=== PATIENT | female | born 1975 | race Caucasian/White ===

== ENCOUNTER 2017-02-07 13:29 | Emergency (ER) | payer SELFPAY ==
[2017-02-07 13:52] VITALS: RESP 18; TEMP 98.4
[2017-02-07 14:08] VITALS: BP 121/80; PULSE 63; O2SAT 99
--- NOTE | 2017-02-07 14:35 | C.PDOC ---
History Of Present Illness Patient is a 41 year old female who presents to the ER with a complaint of pain from her mid to upper back for the past 4 days. This is similar to pain that patient has had many times in the past with no new injury or heavy lifting. or exacerbating factor. Patient states she saw her PMD recently who prescribed her medication for the pain, but states that the medication no longer helps. Patient has a history of herniated disc. Patient was recommended by PMD to see automobile painter but did not go due to lack of insurance. Patient also reports having painful urination for one day. Currently denies nausea, vomiting, or any other injury at this moment. no addle anesthesia, no bladder or bowel incontinence. Time Seen by Provider: 02/07/17 14:00 Chief Complaint (Nursing): Back Pain History Per: Patient History/Exam Limitations: no limitations Onset/Duration Of Symptoms: Days (4) Current Symptoms Are (Timing): Still Present Past Medical History Reviewed: Historical Data, Nursing Documentation, Vital Signs Vital Signs: Last Vital Signs Temp 98.4 F 02/07/17 14:07 Pulse 63 02/07/17 14:07 Resp 18 02/07/17 14:07 BP 121/80 02/07/17 14:07 Pulse Ox 99 02/07/17 15:28 - Medical History PMH: Back Problems, HTN Surgical History: Appendectomy (2000) - [facility] Procedures INJECT/INFUSE NEC (05/08/15) Family History: States: Unknown Family Hx - Social History Hx Tobacco Use: No Hx Alcohol Use: No Hx Substance Use: No - Immunization History Hx Tetanus Toxoid Vaccination: Yes Hx Influenza Vaccination: Yes Hx Pneumococcal Vaccination: Yes Review Of Systems Respiratory: Negative for: Cough, Shortness of Breath Gastrointestinal: Negative for: Nausea, Vomiting Genitourinary: Positive for: Dysuria Musculoskeletal: Positive for: Back Pain (Mid to lower) Physical Exam - Physical Exam Appears: Well, Non-toxic Skin: Normal Color, Warm, Dry Head: Atraumatic, Normacephalic Oral Mucosa: Moist Neck: Normal ROM, No Decreased ROM, No Midline Cervical Tenderness, Paracervical Tenderness Cardiovascular: Rhythm Regular, No Murmur Respiratory: Normal Breath Sounds, No Rales, No Rhonchi, No Wheezing Gastrointestinal/Abdominal: Bowel Sounds, Soft, No Tenderness Back: No CVA Tenderness, No Vertebral Tenderness, Paraspinal Tenderness (left and right sides lumbar area, less tenderness with distraction. ) Extremity: No Pedal Edema, No Calf Tenderness Neurological/Psych: Oriented x3, Normal Speech, Normal Cognition, Normal Motor, Normal Sensation ED Course And Treatment O2 Sat by Pulse Oximetry: 99 (Room air) Pulse Ox Interpretation: Normal Progress Note: Urinalysis and POC urine test ordered. Medical Decision Making Medical Decision Making: [place] aware reviewed; pt received an RX for 10 tablets of tramadol on 01/19/17. 324 pm pt given one tablet of tramadol in ED; advised to continue her usual medication and follow up with her PMD. Disposition Counseled Patient/Family Regarding: Diagnosis, Need For Followup - Disposition Referrals: [facility] [Outside] [facility] [Outside] Disposition: HOME/ ROUTINE Disposition Time: 15:26 Condition: IMPROVED Additional Instructions: [place] narinder medicamentos usuales segn lo prescrito. Siga con pimentel mdico o en la cl thelma mdica el lunes si el dolor persiste. Instructions: Chronic Back Pain (ED) Forms: Gen Discharge Inst Sinhala Print Language: MALAGASY - Clinical Impression Clinical Impression: Back pain, chronic
[2017-02-07 14:48] LABS: RBC URINE 12 /hpf (0-3); URINE BILIRUBIN NEGATIVE (NEGATIVE); URINE BLOOD 1+ (NEGATIVE); URINE COLOR Yellow (YELLOW); URINE GLUCOSE (UA) NORMAL (Normal); URINE KETONE NEGATIVE (NEGATIVE); URINE LEUKOCYTE ESTERASE NEG Leu/uL (Negative); URINE PROTEIN NEGATIVE (NEGATIVE); URINE UROBILINOGEN NORMAL mg/dL (0.2-1.0); WBC URINE < 1 /hpf (0-5)
== END 2017-02-07 15:41 | disposition home or self-care (01) ==
LOC: C.ER 13:29
DX: G89.29 Other chronic pain (principal); M54.89 Other dorsalgia

== ENCOUNTER 2018-01-02 12:04 | Emergency (ER) | payer SELFPAY ==
[2018-01-02 12:10] VITALS: BMI 20.7
[2018-01-02 12:13] VITALS: O2SAT 100
[2018-01-02 12:41] LABS: BASO % 0.3 % (0.0-2.0); HEMOGLOBIN 12.9 g/dL (11.0-16.0); LYMPH # 1.6 K/uL (1.0-4.3); MEAN CELL VOLUME 77.7 fL (81.0-99.0); MEAN CORPUSCULAR HEMOGLOBIN 25.2 pg (27.0-31.0); MEAN CORPUSCULAR HGB CONC 32.5 g/dL (33.0-37.0); MEAN PLATELET VOLUME 8.7 fL (7.2-11.7); MONO # 0.7 K/uL (0.0-0.8); MONO % 7.6 % (0.0-10.0); NEUT # 7.4 K/uL (1.8-7.0); NEUT % 76.1 % (50.0-75.0); RBC 5.1 Mil/uL (3.80-5.20); RED CELL DISTRIBUTION WIDTH 16.4 % (11.5-14.5); WHITE BLOOD COUNT 9.7 K/uL (4.8-10.8)
[2018-01-02 13:06] LABS: ALB/GLOB RATIO 1.2 (1.0-2.1); ALT/SGPT 17 U/L (9-52); AST/SGOT 29 U/L (14-36); BLOOD UREA NITROGEN 16 mg/dL (7-17); CALCIUM 9.7 mg/dl (8.6-10.4); GFR AFRICAN-AMERICAN > 60; GFR NON-AFRICAN AMERICAN > 60
[2018-01-02] MEDS ORDERED: Sodium Chloride 0.9% 1,000 ML IV STA (13:52)
[2018-01-02] MEDS ORDERED: Sodium Chloride 0.9% 1,000 ML ONE (14:19)
[2018-01-02 14:20] LABS: HCG,QUALITATIVE URINE NEGATIVE (NEGATIVE)
[2018-01-02 14:28] LABS: SQUAMOUS EPITHIAL 6 /hpf (0-5); URINE BACTERIA RARE (<OCC); URINE BILIRUBIN NEGATIVE (NEGATIVE); URINE BLOOD NEGATIVE (NEGATIVE); URINE CLARITY Hazy (Clear); URINE COLOR Amber (YELLOW); URINE GLUCOSE (UA) NORMAL (Normal); URINE LEUKOCYTE ESTERASE NEG Leu/uL (Negative); URINE NITRATE NEGATIVE (NEGATIVE); URINE PROTEIN 2+ mg/dL (NEGATIVE)
[2018-01-02 14:30] LABS: LIPASE 267 U/L (23-300)
--- NOTE | 2018-01-02 15:43 | C.PDOC ---
History Of Present Illness 42-year-old female, presents to the emergency department with complaints of three-day history of generalized abdominal pain, non-bloody/non-bilious vomiting and diarrhea . Patient notes a fever on day one which has now resolved. Denies rash, recent travel symptoms, back pain. Time Seen by Provider: 01/02/18 12:48 Chief Complaint (Nursing): GI Problem History Per: Patient History/Exam Limitations: no limitations Onset/Duration Of Symptoms: Days Current Symptoms Are (Timing): Still Present Severity: Moderate Past Medical History Reviewed: Historical Data, Nursing Documentation, Vital Signs Vital Signs: Last Vital Signs Temp 99.3 F 01/02/18 12:11 Pulse 106 H 01/02/18 12:11 Resp 18 01/02/18 12:11 BP 108/78 01/02/18 12:11 Pulse Ox 100 01/02/18 17:02 - Medical History PMH: Back Problems Denies: HTN (PT DENIES) Surgical History: Appendectomy (2000) - [facility] Procedures INJECT/INFUSE NEC (05/08/15) Family History: States: No Known Family Hx - Social History Hx Tobacco Use: No Hx Alcohol Use: No Hx Substance Use: No - Immunization History Hx Tetanus Toxoid Vaccination: Yes Hx Influenza Vaccination: Yes Hx Pneumococcal Vaccination: Yes Review Of Systems Except As Marked, All Systems Reviewed And Found Negative. Constitutional: Negative for: Fever, Chills Cardiovascular: Negative for: Chest Pain Respiratory: Negative for: Cough, Shortness of Breath Gastrointestinal: Positive for: Nausea, Vomiting, Abdominal Pain Genitourinary: Negative for: Dysuria, Hematuria Musculoskeletal: Negative for: Back Pain Skin: Negative for: Rash Neurological: Negative for: Weakness Physical Exam - Physical Exam Appears: Non-toxic, No Acute Distress Skin: Normal Color, Warm, Dry, No Rash Nose: Normal Oral Mucosa: Moist Neck: Normal ROM Cardiovascular: Rhythm Regular, No Murmur Respiratory: Normal Breath Sounds, No Accessory Muscle Use Gastrointestinal/Abdominal: Soft, Tenderness (periumbilical), No Guarding, No Rebound Extremity: Normal ROM, No Deformity, No Swelling Neurological/Psych: Oriented x3, Normal Speech ED Course And Treatment - Laboratory Results Result Diagrams: 01/02/18 12:37 01/02/18 12:37 O2 Sat by Pulse Oximetry: 100 (RA) Pulse Ox Interpretation: Normal - CT Scan/US CT Abd/Pel Other Rad Studies (CT/US): Read By Radiologist, Radiology Report Reviewed CT/US Interpretation: Accession No. : [id number]. Patient Name / ID : MITCH KIM / [id number]. Exam Date : 01/02/2018 16:15:01 ( Approved ). Study Comment : Sex / Age : F / 42Y. 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 Dictator : Wagner Loya MD. Marine Electronics Technician : Maintainer [employer] : Wagner Loya MD. Approver2 : Report Date : 01/02/2018 16:23:52. My Comment : . PROCEDURE: CT Abdomen and Pelvis with contrast. HISTORY: abd pain, vomiting. COMPARISON: CT scan of the abdomen pelvis dated 06/27/2016. TECHNIQUE: Contrast dose: 100 mL Visipaque 320. Radiation dose: Total exam DLP = 219.2 mGy-cm. This CT exam was performed using one or more of the following dose reduction techniques: Automated exposure control, adjustment of the mA and/or kV according to patient size, and/or use of iterative reconstruction technique. FINDINGS: LOWER THORAX: Stable small right middle and left lower lobe nodules. LIVER: Mild hepatic steatosis. No gross lesion or ductal dilatation. GALLBLADDER AND BILE DUCTS: Unremarkable. PANCREAS: Unremarkable. No gross lesion or ductal dilatation. SPLEEN: Unremarkable. ADRENALS: Unremarkable. No mass. KIDNEYS AND URETERS: Unremarkable. No hydronephrosis. No solid mass. VASCULATURE: Unremarkable. No aortic aneurysm. BOWEL: Underdistended. No obstruction. APPENDIX: Surgically absent. PERITONEUM: Small fat containing umbilical hernia. No free fluid. No free air. LYMPH NODES: Unremarkable. No enlarged lymph nodes. BLADDER: Unremarkable. REPRODUCTIVE: Unremarkable. BONES: No acute fracture. OTHER FINDINGS: None. IMPRESSION: No acute abdominal pelvic pathology. Stable incidental findings as above. Medical Decision Making Medical Decision Making: Plan: * Labs * CT Abd/Pel * Morphine, IVF, Zofran * UA/HCG * Reassess and Disposition * Feels better, tolerates po * Stable to be d/c home Disposition - Disposition Referrals: [facility] [Outside] Disposition: HOME/ ROUTINE Disposition Time: 17:48 Condition: STABLE Additional Instructions: Follow up with PMD within 1-2 days. Return to ED if feel worse. Prescriptions: Dicyclomine [Bentyl] 20 mg PO TID #30 tab Famotidine [Pepcid] 20 mg PO BID #20 tab Ondansetron ODT [Zofran ODT] 4 mg PO .Q4-6H PRN #20 odt PRN Reason: Nausea/Vomiting Instructions: Viral Gastroenteritis, Adult (DC) Forms: [employer] (Polish) Print Language: PUERTO RICAN - Clinical Impression Clinical Impression: Gastroenteritis - Scribe Statement The provider has reviewed the documentation as recorded by the Scribe (Yaw Wen) All medical record entries made by the Scribe were at my direction and personally dictated by me. I have reviewed the chart and agree that the record accurately reflects my personal performance of the history, physical exam, medical decision making, and the department course for this patient. I have also personally directed, reviewed, and agree with the discharge instructions and disposition.
[2018-01-02] MEDS ORDERED: Iodixanol 320 MG/ML 100 ML BOTTLE IV ONE (15:56)
--- NOTE | 2018-01-02 16:35 | CT ---
PROCEDURE: CT Abdomen and Pelvis with contrast HISTORY: abd pain, vomiting COMPARISON: CT scan of the abdomen pelvis dated 06/27/2016. TECHNIQUE: Contrast dose: 100 mL Visipaque 320 Radiation dose: Total exam DLP = 219.2 mGy-cm. This CT exam was performed using one or more of the following dose reduction techniques: Automated exposure control, adjustment of the mA and/or kV according to patient size, and/or use of iterative reconstruction technique. FINDINGS: LOWER THORAX: Stable small right middle and left lower lobe nodules. LIVER: Mild hepatic steatosis. No gross lesion or ductal dilatation. GALLBLADDER AND BILE DUCTS: Unremarkable. PANCREAS: Unremarkable. No gross lesion or ductal dilatation. SPLEEN: Unremarkable. ADRENALS: Unremarkable. No mass. KIDNEYS AND URETERS: Unremarkable. No hydronephrosis. No solid mass. VASCULATURE: Unremarkable. No aortic aneurysm. BOWEL: Underdistended. No obstruction. APPENDIX: Surgically absent. PERITONEUM: Small fat containing umbilical hernia. No free fluid. No free air. LYMPH NODES: Unremarkable. No enlarged lymph nodes. BLADDER: Unremarkable. REPRODUCTIVE: Unremarkable. BONES: No acute fracture. OTHER FINDINGS: None. IMPRESSION: No acute abdominal pelvic pathology. Stable incidental findings as above.
[2018-01-02 18:07] VITALS: BP 110/73; PULSE 94; RESP 20; TEMP 99
== END 2018-01-02 18:07 | disposition home or self-care (01) ==
LOC: C.ER 12:04
DX: K52.9 Noninfective gastroenteritis and colitis, unspecified (principal)
CPT/HCPCS: 74177; 80053; 81001; 83690; 84703; 85025; 96361; 96374; 96375; 99285; J2270; J2405; J7040; Q9967